=== PATIENT | male | born 1995 | race Hispanic/Latino ===

== ENCOUNTER 2017-08-31 00:32 | Emergency (ER) | payer BC ==
[2017-08-31] MEDS ORDERED: IBUPROFEN 800 MG TAB ONE (01:03)
== END 2017-08-31 01:36 | disposition home or self-care (01) ==
LOC: EDH 00:32
DX: S00.83XA Contusion of other part of head, initial encounter (principal); S00.33XA Contusion of nose, initial encounter; J45.909 Unspecified asthma, uncomplicated; Z72.0 Tobacco use; Y04.8XXA Assault by other bodily force, initial encounter; Y93.89 Activity, other specified; Y92.89 Other specified places as the place of occurrence of the external cause; Y99.8 Other external cause status
CPT/HCPCS: 70140

== ENCOUNTER 2017-09-13 18:11 | Emergency (ER) | payer BC ==
[2017-09-13] MEDS ORDERED: KETOROLAC TROMETHAMINE 60 MG/2 ML VIAL ONE (19:30)
== END 2017-09-13 19:53 | disposition home or self-care (01) ==
LOC: EDH 18:11
DX: M26.601 Right temporomandibular joint disorder, unspecified (principal); J45.909 Unspecified asthma, uncomplicated; Z87.891 Personal history of nicotine dependence
CPT/HCPCS: 96372; 99283; J1885